=== PATIENT | male | born 1965 | race Caucasian/White ===

== ENCOUNTER 2017-10-25 22:24 | Observation (INO) | payer BC ==
[~2017-10-25] VITALS: Ht 182.9 cm; Wt 121.6 kg
[2017-10-26 04:12] LABS: HEMATOCRIT 41.6 % (38.0-50.0); MCH 30.9 PG (29.0-34.0); MCHC 33.7 G/DL (30.0-36.0); MCV 91.8 FL (86-99); PLATELET COUNT 202 K/uL (156-360); RBC DIS.WIDTH-CV 12.7 % (11.8-14.6); RBC DIS.WIDTH-SD 42.7 % (39-53); RED BLOOD COUNT 4.53 M/uL (4.00-5.50); WHITE BLOOD COUNT 11.9 K/uL (4.1-10.2)
[2017-10-26 04:33] LABS: TROP-I INTERPRETATION NEGATIVE; TROPONIN-I < 0.01 ng/mL (0.0-0.30)
[2017-10-26 04:35] LABS: ALBUMIN 4.1 G/DL (3.2-4.8); ALKALINE PHOSPHATASE 63 IU/L (3-129); ALT (GPT) 46 IU/L (3-49); AST (GOT) 33 IU/L (2-34); CHLORIDE 105 MEQ/L (99-109); CREATININE 1.1 MG/DL (0.6-1.3); GFR ESTIMATE (CALCULATED) > 59 mL/min/ (58.99-99999); GLUCOSE 113 mg/dL (70-99); POTASSIUM 3.7 MEQ/L (3.7-5.4); SODIUM 141 MEQ/L (136-147); TOTAL BILIRUBIN 0.4 MG/DL (0.0-1.0); TOTAL PROTEIN 7.1 G/DL (6.4-8.3); UREA NITROGEN (BUN) 10 mg/dL (9-23)
[2017-10-26 05:07] LABS: LIPASE 19 U/L (1.0-51.0)
[2017-10-26] MEDS ORDERED: THERAFLU EXP245.5 M1 PO (08:15)
[2017-10-26] MEDS ORDERED: ASCORBIC ACID500 M1 PO (08:17)
[2017-10-26] MEDS ORDERED: ALKA-SELTZER P1 EAC7 PO (08:17)
[2017-10-26] MEDS ORDERED: CLEAR EYES COOL15 ML BOTH EYES (08:18)
[2017-10-26 08:32] LABS: HDL CHOLESTEROL 38 MG/DL (Desirable>=40); LDL CHOLESTEROL 63 mg/dL (Desirable<100); NON-HDL CHOLESTEROL 70 mg/dL (Desirable<160); TOTAL CHOLESTEROL 108 mg/dL (Desirable<200); TRIGLYCERIDES 35 MG/DL (Normal: <150)
[2017-10-26 12:00] VITALS: BP 132/83
[2017-10-26 16:56] VITALS: BP 135/69
[2017-10-26 20:07] VITALS: BP 184/87
[2017-10-26 21:20] VITALS: BP 137/81
[2017-10-26 23:29] VITALS: BP 139/78
[2017-10-27 04:11] VITALS: BP 133/71
[2017-10-27 06:18] LABS: HEMATOCRIT 37.8 % (38.0-50.0); HEMOGLOBIN 12.6 G/DL (12.5-16.6); MCH 30.7 PG (29.0-34.0); MCHC 33.3 G/DL (30.0-36.0); PLATELET COUNT 193 K/uL (156-360); RBC DIS.WIDTH-CV 12.7 % (11.8-14.6); RBC DIS.WIDTH-SD 42.1 % (39-53); RED BLOOD COUNT 4.11 M/uL (4.00-5.50); WHITE BLOOD COUNT 9.3 K/uL (4.1-10.2)
[2017-10-27 06:39] LABS: CHLORIDE 105 MEQ/L (99-109); GFR ESTIMATE (CALCULATED) > 59 mL/min/ (58.99-99999); GLUCOSE 99 mg/dL (70-99); POTASSIUM 3.7 MEQ/L (3.7-5.4); SODIUM 142 MEQ/L (136-147); UREA NITROGEN (BUN) 8 mg/dL (9-23)
[2017-10-27 07:51] VITALS: BP 135/80
[2017-10-27 09:03] LABS: HEMOGLOBIN A1c (GLYCOHEMOGLOB) 5.5 % (Below 5.7)
[2017-10-27 10:00] VITALS: BP 130/83
[2017-10-27 10:01] VITALS: BP 137/88
[2017-10-27 10:03] VITALS: BP 134/83
[2017-10-27] MEDS ORDERED: MUCINEX600 MG PO (11:09)
[2017-10-27] MEDS ORDERED: BACITRACIN3.5 GM BOTH EYES (11:09)
[2017-10-27] MEDS ORDERED: Cipro 0.2% Otic Solu LEFT EAR (11:09)
== END 2017-10-27 14:11 | disposition home or self-care (01) ==
LOC: EME 22:24 → 5SOUTH 10-26 07:25 → EDOF 10-26 07:25 → 5SOUTH 10-26 07:25 → ENRESERV 10-26 07:26 → 5SOUTH 10-26 09:31
PROVIDERS: Emergency Medicine; Internal Medicine
DX: R55 Syncope and collapse (principal); J06.9 Acute upper respiratory infection, unspecified; B99.9 Unspecified infectious disease; H10.89 Other conjunctivitis; H60.92 Unspecified otitis externa, left ear; E86.0 Dehydration; Z82.5 Family history of asthma and other chronic lower respiratory diseases; Z81.8 Family history of other mental and behavioral disorders; Z83.79 Family history of other diseases of the digestive system
CPT/HCPCS: 70450; 70551; 71045; 80048; 80053; 80061; 83036; 83605; 83690; 84484; 85027; 87502; 87651 90; 93005; 93880; 99202; 99281; 99285; G0378; J1650; J7030